=== PATIENT | female | born 1980 | race African-American/Black ===

== ENCOUNTER 2018-11-09 13:34 | Emergency (ER) | payer OTHER ==
[~2018-11-09] VITALS: Ht 167.6 cm; Wt 137.9 kg
[2018-11-09] MEDS ORDERED: GLUCOPHAGE1000 MG PO (14:01)
[2018-11-09] MEDS ORDERED: ACCUPRIL10 MG PO (14:02)
[2018-11-09] MEDS ORDERED: NORCO 5-325 TA1 EACH PO (15:22)
[2018-11-09] MEDS ORDERED: BACTRIM DS TAB1 EACH PO (15:22)
[2018-11-09 16:13] VITALS: BP 137/78
== END 2018-11-09 18:33 | disposition home or self-care (01) ==
LOC: ER 13:34
DX: L02.412 Cutaneous abscess of left axilla (principal); I10 Essential (primary) hypertension; F17.210 Nicotine dependence, cigarettes, uncomplicated

== ENCOUNTER 2019-07-05 18:26 | Emergency (ER) | payer OTHER ==
[~2019-07-05] VITALS: Ht 167.6 cm; Wt 149.7 kg
[~2019-07-05 18:26] MED LIST: ACCUPRIL10 MG PO; BACTRIM DS TAB1 EACH PO; GLUCOPHAGE1000 MG PO; NORCO 5-325 TA1 EACH PO
[2019-07-05] MEDS ORDERED: AMLODIPINE BESY10 MG PO (18:44)
[2019-07-05] MEDS ORDERED: HYDROCHLOROTHIA25 M2 PO (18:45)
[2019-07-05 22:41] VITALS: BP 155/100
== END 2019-07-06 00:23 | disposition home or self-care (01) ==
LOC: ER 18:26
DX: G56.03 Carpal tunnel syndrome, bilateral upper limbs (principal); M43.6 Torticollis; F19.10 Other psychoactive substance abuse, uncomplicated; I10 Essential (primary) hypertension; E66.9 Obesity, unspecified; F17.210 Nicotine dependence, cigarettes, uncomplicated; Z68.43 Body mass index [BMI] 50.0-59.9, adult